=== PATIENT | female | born 1945 | race Caucasian/White ===

== ENCOUNTER 2020-09-05 12:36 | Inpatient (IN) ==
[~2020-09-05 12:36] MED LIST: Famotidine 20 MG/2 ML VIAL IVP ONE
[2020-09-05] MEDS ORDERED: CeFAZolin Syr 2,000MG/20 ML 2,000 MG/20 ML SYRINGE IVPB ONE (13:07)
[2020-09-05] MEDS ORDERED: 0.9 % Sodium Chloride 1,000 ML IVC SCH ×2 (13:15→18:50)
[2020-09-05] MEDS ORDERED: Ondansetron 4 MG/2 ML VIAL ONE ×2 (14:07→16:40)
[2020-09-05] MEDS ORDERED: Lidocaine -MPF 2% 2 ML VIAL ONE ×2 (14:07→16:52)
[2020-09-05] MEDS ORDERED: *HR* Propofol 200 MG/20 ML VIAL IVP ONE (14:07)
[2020-09-05] MEDS ORDERED: *HR* FentaNYL (PF) 100 MCG/2 ML VIAL ONE (14:07)
[2020-09-05] MEDS ORDERED: *HR* Rocuronium Bromide 50 MG/5 ML VIAL ONE (14:07)
[2020-09-05] MEDS ORDERED: Lidocaine -MPF 4% 5 ML AMPUL ONE (14:10)
[2020-09-05] MEDS ORDERED: Dexamethasone 4 MG/ML VIAL IVP ONE (14:24)
[2020-09-05] MEDS ORDERED: Pregabalin 50 MG CAPSULE PO ONE (14:24)
[2020-09-05] MEDS ORDERED: Acetaminophen IV 1,000 MG/100 ML BAG IVPB ONE (14:24)
[2020-09-05] MEDS ORDERED: Ondansetron 4 MG/2 ML VIAL IVP ONE (14:47)
[2020-09-05] MEDS ORDERED: Dexamethasone Sodium Phos/PF 10 MG/ML VIAL ONE (15:02)
[2020-09-05] MEDS ORDERED: Naloxone 0.4 MG/ML INJ IVP PRN ×2 (15:32→18:50)
[2020-09-05] MEDS ORDERED: Ondansetron 4 MG/2 ML VIAL IVP PRN ×2 (15:32→18:50)
[2020-09-05] MEDS ORDERED: Ipratropium Neb 0.5 MG NEBULIZER IH PRN (15:32)
[2020-09-05] MEDS ORDERED: *HR* FentaNYL (PF) 100 MCG/2 ML VIAL IVP PRN (15:32)
[2020-09-05] MEDS ORDERED: Albuterol 2.5 MG/3 ML NEBULIZER IH PRN (15:32)
[2020-09-05] MEDS ORDERED: Dexamethasone 4 MG/ML VIAL ONE (16:40)
[2020-09-05] MEDS ORDERED: Metoclopramide 10 MG/2 ML VIAL ONE (16:40)
[2020-09-05] MEDS ORDERED: 0.9 % Sodium Chloride 500 ML ONE (17:15)
[2020-09-05] MEDS: *HR* HYDROmorphone PF 0.5 MG/0.5 ML SYRINGE IVP PRN ×3 (17:31→17:42)
[2020-09-05] MEDS ORDERED: *HR* HYDROcodone/Acet 5/325 mg TABLET PO PRN (18:50)
[2020-09-05] MEDS: *HR* Heparin 5,000 UNIT/ML VIAL SQ SCH (20:25)
[2020-09-05] MEDS: Sennosides/Docusate Sodium TABLET PO SCH (20:25)
[2020-09-05] MEDS: Famotidine 20 MG TABLET PO SCH (20:25)
[2020-09-05] MEDS: Ipratropium/Albuterol Neb 3 ML IH SCH (20:56)
[2020-09-05] MEDS ORDERED: Melatonin 3 MG TABLET PO SCH (21:00)
[2020-09-05] MEDS: Ketorolac 15 MG/ML VIAL IVP SCH (22:25)
[2020-09-05] MEDS: Gabapentin 300 MG CAPSULE PO SCH (22:26)
[2020-09-06] MEDS: Ipratropium/Albuterol Neb 3 ML IH SCH ×3 (00:06→08:04)
[2020-09-06] MEDS: Ketorolac 15 MG/ML VIAL IVP SCH ×2 (03:02→05:09)
[2020-09-06 04:47] LABS: Hemoglobin 12.3 g/dL (11.5-15.4); Mean Corpuscular HGB Conc 30.8 g/dL (31.6-35.5); Mean Corpuscular Hemoglobin 28.2 pg (28.0-33.3); Mean Corpuscular Volume 91.7 fL (83.0-100.0); Mean Platelet Volume 9.6 fL (9.4-12.4); Platelet Count 279 K/mcL (140-400); Red Blood Count 4.36 M/mcL (3.82-4.97); Red Cell Distribution Width 13.8 % (11.5-14.5); White Blood Count 9.7 K/mcL (4.3-11.1)
[2020-09-06 05:08] LABS: % Iron Saturation 10 % (15-50); BUN/Creatinine Ratio 19 (6-26); Blood Urea Nitrogen 19 mg/dL (8-23); Calcium 8.6 mg/dL (8.6-10.3); Carbon Dioxide 23 mEq/L (23-29); Chloride 105 mEq/L (98-107); Glucose 166 mg/dL (70-105); Iron 48 mcg/dL (50-170); Osmolality,Calculated 294 (280-300); Potassium 3.6 mEq/L (3.5-5.1); Sodium 139 mEq/L (136-145); Transferrin 331 mg/dL (203-362); eGFR For African Americans > 60 (> 60); eGFR For Non-African Americans 55 (> 60)
[2020-09-06] MEDS: *HR* Heparin 5,000 UNIT/ML VIAL SQ SCH (05:09)
[2020-09-06 07:30] VITALS: BP 110/53
[2020-09-06] MEDS: Gabapentin 300 MG CAPSULE PO SCH (07:58)
[2020-09-06] MEDS: Famotidine 20 MG TABLET PO SCH (07:58)
[2020-09-06] MEDS: Sennosides/Docusate Sodium TABLET PO SCH (07:58)
[2020-09-06] MEDS ORDERED: polyethylene glycoL 3350 17 GM POWD.PACK PO SCH (09:00)
[2020-09-06] MEDS ORDERED: Spironolactone 25 MG TABLET PO SCH (09:00)
[2020-09-06] MEDS ORDERED: Loratadine 10 MG TABLET PO SCH (09:00)
[2020-09-06] MEDS ORDERED: Aspirin 81 MG TAB.CHEW PO SCH (09:00)
== END 2020-09-06 11:03 | disposition home or self-care (01) | DRG 272 ==
LOC: SAMDAY 12:36 → 2NNU 17:55
PROVIDERS: ADMIT Thoracic Surgery (Cardiothoracic Vascular Surgery); ATTEND Thoracic Surgery (Cardiothoracic Vascular Surgery)

== ENCOUNTER 2020-09-06 17:54 | Inpatient (IN) ==
[2020-09-06 18:43] LABS: Basophils % 0.1 %; Eosinophils % 0.1 %; Hematocrit 41.2 % (35.3-44.9); Hemoglobin 13.1 g/dL (11.5-15.4); Immature Granulocytes % 1.3 % (0-4); Lymphocytes # 1.1 K/mcL (0.6-4.6); Lymphocytes % 6.2 %; Mean Corpuscular HGB Conc 31.8 g/dL (31.6-35.5); Mean Corpuscular Hemoglobin 28.4 pg (28.0-33.3); Mean Corpuscular Volume 89.4 fL (83.0-100.0); Mean Platelet Volume 9.5 fL (9.4-12.4); Monocytes # 1.4 K/mcL (0.0-1.3); Monocytes % 7.4 %; Neutrophils # 15.6 K/mcL (1.6-8.9); Platelet Count 321 K/mcL (140-400); Red Blood Count 4.61 M/mcL (3.82-4.97); Segmented Neutrophils % 84.9 %; White Blood Count 18.4 K/mcL (4.3-11.1)
[2020-09-06 18:54] LABS: Prothrombin Time 11.4 Seconds (9.4-12.1)
[2020-09-06 18:56] LABS: Activated Partial Thrombo Time 23.3 Seconds (26.0-36.0)
[2020-09-06 19:04] LABS: BUN/Creatinine Ratio 26 (6-26); Blood Urea Nitrogen 24 mg/dL (8-23); Calcium 9.6 mg/dL (8.6-10.3); Carbon Dioxide 24 mEq/L (23-29); Chloride 103 mEq/L (98-107); Glucose 146 mg/dL (70-105); Osmolality,Calculated 291 (280-300); Potassium 3.6 mEq/L (3.5-5.1); Sodium 137 mEq/L (136-145); eGFR For African Americans > 60 (> 60); eGFR For Non-African Americans 59 (> 60)
[2020-09-06 19:05] LABS: Troponin I 0.03 ng/mL (< 0.04)
[2020-09-06] MEDS ORDERED: Isovue-370 500 ML BOTTLE IVP ONE (19:49)
[2020-09-06] MEDS ORDERED: *HR* HYDROmorphone (PF) 1 MG/ML SYRINGE IVP ONE (19:56)
[2020-09-06] MEDS ORDERED: Azithromycin 500 MG in 0.9 % Sodium Chloride 250 ML IVPB ONE (21:27)
[2020-09-06] MEDS ORDERED: cefTRIAXone 1,000 MG in 0.9 % Sodium Chloride Mini Bag 100 ML IVPB ONE (21:27)
[2020-09-06] MEDS ORDERED: cefTRIAXone 1,000 MG in Water for inj. (sterile) 10 ML IVP ONE (21:55)
[2020-09-06] MEDS ORDERED: Naloxone 0.4 MG/ML INJ IVP PRN (22:48)
[2020-09-06] MEDS ORDERED: Acetaminophen 325 MG TABLET PO PRN (22:48)
[2020-09-06] MEDS ORDERED: Ondansetron ODT 4 MG TAB.RAPDIS SL PRN (22:48)
[2020-09-06] MEDS ORDERED: Ipratropium/Albuterol Neb 3 ML IH PRN (22:50)
[2020-09-06 23:56] LABS: Bacteria,Urine Few per hpf (None-Few); Bilirubin,Urine Negative (Negative); Blood,Urine Small (Negative); Clarity,Urine Clear (Clear); Color,Urine Colorless (Yellow); Glucose,Urine (UA) Normal (Normal); Ketones,Urine Negative (Negative); Leukocyte Esterase,Urine Small (Negative); Mucus,Urine Few per lpf (None-Few); Nitrite,Urine Negative (Negative); PH,Urine 6.5 pH Units (5.0-8.0); Protein,Urine Trace mg/dL (Neg-Trace); RBC,Urine 15-30 per hpf (0-3); Specific Gravity,Urine > 1.030 (1.010-1.025); Squamous Epithelial Cell,Urine Moderate per hpf (None-Few); Urobilinogen,Urine Normal (Normal)
[2020-09-07 05:17] LABS: Basophils % 0.2 %; Hematocrit 39.1 % (35.3-44.9); Hemoglobin 12.2 g/dL (11.5-15.4); Immature Granulocytes % 1.3 % (0-4); Lymphocytes # 1.2 K/mcL (0.6-4.6); Lymphocytes % 9.6 %; Mean Corpuscular HGB Conc 31.2 g/dL (31.6-35.5); Mean Corpuscular Volume 89.7 fL (83.0-100.0); Mean Platelet Volume 9.4 fL (9.4-12.4); Monocytes % 8.5 %; Neutrophils # 9.7 K/mcL (1.6-8.9); Platelet Count 258 K/mcL (140-400); Red Blood Count 4.36 M/mcL (3.82-4.97); Red Cell Distribution Width 14.2 % (11.5-14.5); Segmented Neutrophils % 80.4 %
[2020-09-07 05:35] LABS: BUN/Creatinine Ratio 26 (6-26); Blood Urea Nitrogen 19 mg/dL (8-23); Calcium 8.7 mg/dL (8.6-10.3); Carbon Dioxide 23 mEq/L (23-29); Chloride 108 mEq/L (98-107); Glucose 133 mg/dL (70-105); Osmolality,Calculated 292 (280-300); Phosphorous 2.5 mg/dL (2.7-4.5); Potassium 3.8 mEq/L (3.5-5.1); Sodium 139 mEq/L (136-145); eGFR For African Americans > 60 (> 60); eGFR For Non-African Americans > 60 (> 60)
[2020-09-07] MEDS: cefTRIAXone 1,000 MG in 0.9 % Sodium Chloride Mini Bag 100 ML IVPB SCH (08:08)
[2020-09-07] MEDS ORDERED: Azithromycin 500 MG in 0.9 % Sodium Chloride 250 ML IVPB SCH (09:00)
[2020-09-07] MEDS ORDERED: tiZANidine 4 MG TABLET PO PRN (10:31)
[2020-09-07] MEDS ORDERED: Furosemide 40 MG/4 ML VIAL IVP ONE (17:19)
[2020-09-07] MEDS: Gabapentin 300 MG CAPSULE PO SCH (20:41)
[2020-09-07] MEDS ORDERED: Cholecalciferol (D-3) 1,000 UNIT (25MCG) TABLET PO SCH (21:00)
[2020-09-07] MEDS ORDERED: Aspirin 81 MG TAB.CHEW PO SCH (21:00)
[2020-09-07] MEDS ORDERED: *HR* LORazepam 2 MG/ML VIAL IVP ONE (22:17)
[2020-09-07] MEDS: Budesonide/Formoterol 160/4.5 1 PUFF INH IH SCH (22:39)
[2020-09-08 06:01] LABS: Basophils % 0.2 %; Hematocrit 37.9 % (35.3-44.9); Hematocrit 38.6 % (35.3-44.9); Hemoglobin 12.1 g/dL (11.5-15.4); Hemoglobin 12.3 g/dL (11.5-15.4); Immature Granulocytes % 0.9 % (0-4); Lymphocytes # 1.5 K/mcL (0.6-4.6); Lymphocytes % 15.9 %; Mean Corpuscular HGB Conc 31.3 g/dL (31.6-35.5); Mean Corpuscular HGB Conc 32.5 g/dL (31.6-35.5); Mean Corpuscular Hemoglobin 28.3 pg (28.0-33.3); Mean Corpuscular Hemoglobin 29.1 pg (28.0-33.3); Mean Corpuscular Volume 89.6 fL (83.0-100.0); Mean Corpuscular Volume 90.4 fL (83.0-100.0); Mean Platelet Volume 9.4 fL (9.4-12.4); Mean Platelet Volume 9.6 fL (9.4-12.4); Monocytes # 0.8 K/mcL (0.0-1.3); Monocytes % 8.6 %; Neutrophils # 7.2 K/mcL (1.6-8.9); Platelet Count 267 K/mcL (140-400); Platelet Count 278 K/mcL (140-400); Red Blood Count 4.23 M/mcL (3.82-4.97); Red Blood Count 4.27 M/mcL (3.82-4.97); Red Cell Distribution Width 14.1 % (11.5-14.5); Red Cell Distribution Width 14.2 % (11.5-14.5); Segmented Neutrophils % 74.4 %; White Blood Count 10.1 K/mcL (4.3-11.1); White Blood Count 9.7 K/mcL (4.3-11.1)
[2020-09-08 06:22] LABS: BUN/Creatinine Ratio 27 (6-26); Blood Urea Nitrogen 20 mg/dL (8-23); Calcium 9.1 mg/dL (8.6-10.3); Carbon Dioxide 27 mEq/L (23-29); Chloride 104 mEq/L (98-107); Glucose 108 mg/dL (70-105); Magnesium 2.1 mg/dL (1.6-2.6); Osmolality,Calculated 293 (280-300); Potassium 3.3 mEq/L (3.5-5.1); Sodium 140 mEq/L (136-145); eGFR For African Americans > 60 (> 60); eGFR For Non-African Americans > 60 (> 60)
[2020-09-08] MEDS: Budesonide/Formoterol 160/4.5 1 PUFF INH IH SCH (08:19)
[2020-09-08] MEDS: cefTRIAXone 1,000 MG in 0.9 % Sodium Chloride Mini Bag 100 ML IVPB SCH (08:43)
[2020-09-08] MEDS: Gabapentin 300 MG CAPSULE PO SCH (08:47)
[2020-09-08] MEDS ORDERED: Spironolactone 25 MG TABLET PO SCH (09:00)
[2020-09-08] MEDS ORDERED: polyethylene glycoL 3350 17 GM POWD.PACK PO SCH (09:00)
[2020-09-08] MEDS ORDERED: Furosemide 40 MG/4 ML VIAL IVP SCH (09:00)
[2020-09-08] MEDS ORDERED: Loratadine 10 MG TABLET PO SCH (09:00)
[2020-09-08] MEDS ORDERED: levoFLOXacin 750 MG TABLET PO ONE (09:29)
[2020-09-08 11:06] VITALS: BP 117/70
== END 2020-09-08 11:53 | disposition home or self-care (01) | DRG 871 ==
LOC: EMEROOARM 17:54 → CDU 17:54 → SUATTDRO 22:47 → CDU 23:18
PROVIDERS: ADMIT Student in an Organized Health Care Education/Training Program; ATTEND Internal Medicine